=== PATIENT | male | born 1970 | race Caucasian/White ===

== ENCOUNTER 2025-03-12 16:47 | Outpatient (CLI) | payer OTHER, SELFPAY ==
--- NOTE | 2025-03-12 16:54 | CT_ITS ---
WS: [id number] CT HEAD WITH AND WITHOUT CONTRAST HISTORY: NEW ONSET HEADACHE TECHNIQUE: Noncontrast axial images obtained from the vertex to the skull base. Additional imaging performed in axial images status post IV contrast. Bone and soft tissue windows are reviewed. All CT scans at [facility] use at least one of these dose optimization techniques: automated exposure control; mA and/or kV adjustment per patient size (includes targeted exams where dose is matched to clinical indication); or iterative reconstruction. CONTRAST: Omnipaque 350; 100 mL IV. DLP: 2205.38 mGy.cm COMPARISON: None available. No acute intracranial hemorrhage, edema or midline shift. No prior infarct. No significant small vessel disease or atrophy. Negative posterior fossa. No enhancing mass or vascular malformations identified. Dural venous sinuses are normally enhancing. Visualized [place] is unremarkable. Paranasal sinuses as visualized: Small amount mucoperiosteal disease in the anterior LEFT ethmoid air cells and in the RIGHT sphenoid sinus. No air-fluid levels. Mastoid air cells: Clear. Calvarium and scalp: Intact. CT/CT head wo/w con [id number] IMPRESSION: 1. No acute intracranial hemorrhage or edema. 2. No enhancing masses or vascular malformations. 3. Mild mucoperiosteal disease in the anterior LEFT ethmoid air cells and the RIGHT sphenoid sinus. No air-fluid levels.
[2025-03-12] MEDS: iohexol 350 mg/mL 500 mL Btl (per mL) IV (17:31)
== END 2025-03-12 16:48 | disposition home or self-care (01) ==
LOC: RAD 16:50
PROVIDERS: PCP Nurse Practitioner Family; Visit Provider Otolaryngology
DX: G44.52 New daily persistent headache (NDPH) (principal); J34.89 Other specified disorders of nose and nasal sinuses
CPT/HCPCS: 70470